=== PATIENT | female | born 1995 | race Caucasian/White ===

== ENCOUNTER 2023-11-21 17:19 | Inpatient (IN) ==
[2023-11-21] MEDS ORDERED: OXYTOCIN 30 UNITS/NSS 30 UNITS/500 ML BAG IV PRN (20:41)
[2023-11-21] MEDS ORDERED: LIDOCAINE 1% LOCAL 20 ML VIAL INFIL PRN (20:41)
--- NOTE | 2023-11-21 20:46 | History & Physical Report ---
Date of Service November 21, 2023 Assessment & Plan (1) Normal labor: (2) Need for MMR vaccine: Plan admit, iv, labs. fhts categ 1. desires epidural. mmr pp. plan arom when comfortable. History of Present Illness Chief Complaint: labor Primary Care Provider: GRACIA Perez 28yo at 40+wks ega presents to L&D with regular ctx. At first were 4-10min apart and was only 2-3 cm and now more regular and painful. No rom. PNC c/b 1. rubella equiv, mmr pp PNL rh pos, rubella equiv, gbs neg OBH: g1 GYNH: nl paps, no stds Allergies Allergy/AdvReac Type Severity Reaction Status Date / Time No Known Drug Allergies Allergy Verified 11/18/23 14:07 Home Medications Medication Instructions Recorded Confirmed Type vit no.95-ferrous 1 tab PO DAILY 03/25/23 11/21/23 History fumarate 28 mg-folic acid 800 mcg tablet () calcium carbonate 500 mg calcium 1 tab PO DIRECTED Abdominal 11/21/23 11/21/23 History (1,250 mg) chewable tablet Discomfort docusate sodium 100 mg capsule 100 mg PO DAILY 11/21/23 11/21/23 History (Colace) famotidine 10 mg/mL intravenous 10 mg PO DAILY 11/21/23 11/21/23 History solution Patient History Medical History Anterior dislocation of right shoulder Asthma Left ACL tear Oral contraceptive pill surveillance Witnessed episode of apnea Surgical History History of myringotomy S/P left knee arthroscopy S/P wisdom tooth extraction Family History Mother Bleeding disorder Grandmother (Maternal) Ovarian cancer Grandfather (Maternal) Stroke Lung disease Other Breast cancer Denies family history of Prostate cancer Myocardial infarction Colorectal cancer Social History Smoking Status: Never smoker Second Hand Exposure: No; Do You Dip or Chew Tobacco: No; Hx Alcohol Use: No Hx Substance Use: No Preferred Language: Armenian Communication Ability: Effective Visual Impairment: No Limitations Hearing Ability: Normal [employer] Required: No Beliefs That Will Affect Care: None marital status: Single marital status details: Leon (26) [phone] Current Living Situation: Significant Other Current Living Situation Comment: lives with FOB, 1 dog, 2 cats, fob to change litter. current occupational status: employed current occupation: [employer] Other Information That Helps Us Care for You: No Feels Safe at Home: Yes Safety Concerns: Feels Safe At This Time Childhood Exposure to Second-Hand Smoke: Yes (occasional ) Diet: regular Diet Comment: Regular caffeine: Yes (coffee) during the past year weight has: remained stable Dental Care, Regularly: Yes Physical Activity Frequency: 3-4 Times per Week Seatbelt Use: always Sunscreen Use: Yes Assistive Devices: None Review of Systems as per Subjective / HPI Physical Exam Constitutional: WD/WN, vitals as above Respiratory: normal respiratory effort, lungs clear to auscultation Cardiovascular: Rate/Rhythm: regular rate and regular rhythm Gastrointestinal (Abdomen): soft gravid nt efw 7-8# Musculoskeletal: tr edema nontender calves Neurologic: grossly normal Psychiatric: A+Ox3, euthymic affect Genitourinary: Manual OB Exam: + cervical dilation 5 cm, + cervical effacement 90% and + station -2 OB Exam Monitor Tracing: + external FHT monitor used, + external uterine monitor used (q2-4), + category I and + normal FHT variability Results & Data Vital Signs (Past 12 Hours) Vital Signs Temp Pulse Resp BP 11/21/23 19:04 90 11/21/23 19:04 140/76 11/21/23 18:58 97.5 F L 18 11/21/23 17:39 97.9 F 93 H 18 135/77 Coding Level of Care Code None Diagnoses Normal labor O80; Z37.9 Need for MMR vaccine Z23
[2023-11-21] MEDS: LACTATED RINGER'S 1,000 ML IV PRN (21:18)
[2023-11-21 21:56] LABS: Hematocrit (blood only) 41.7 % (37.0-47.0); Mean Corpuscular Hemoglobin 31.3 pg (25.0-34.0); Mean Corpuscular Volume 86.9 fL (80.0-100.0); Platelet Count 237 K/uL (130-400); RDW Standard Deviation 40.7 fL (36.4-46.3); White Blood Count 15.71 K/ul (4.8-10.8)
--- NOTE | 2023-11-21 22:04 | Anesthesiology Consultation ---
Date of Service November 21, 2023 Assessment & Plan Chart Review Chart Review: Patient NOT seen in Pre Admission Testing and Acceptable Risk for Labor Epidural Consults Requested none ASA ASA2 Proposed Anesthesia Anesthesia Type: Labor Epidural Risk / Benefits Reviewed With: PT / POA / Parent / Guardian, Accepts Plan and Informed Consent Obtained History Height/Weight Height: 5 ft 5 in Weight: 78.471 kg Allergies Allergy/AdvReac Type Severity Reaction Status Date / Time No Known Drug Allergies Allergy Verified 11/18/23 14:07 Medications Home Medications Medication Instructions Recorded Confirmed Last Taken vit no.95-ferrous 1 tab PO DAILY 03/25/23 11/21/23 11/21/23 09:00 fumarate 28 mg-folic acid 800 mcg tablet () calcium carbonate 500 mg calcium 1 tab PO DIRECTED Abdominal 11/21/23 11/21/23 11/21/23 12:00 (1,250 mg) chewable tablet Discomfort docusate sodium 100 mg capsule 100 mg PO DAILY 11/21/23 11/21/23 11/20/23 (Colace) famotidine 10 mg/mL intravenous 10 mg PO DAILY 11/21/23 11/21/23 11/21/23 09:00 solution Active Medications Generic Name Dose Route Start Last Admin Trade Name Freq PRN Reason Stop Dose Admin Lactated Ringer's 1,000 mls @ 125 mls/hr 11/21/23 20:41 11/21/23 21:18 Lr IV 11/23/23 20:40 999 mls/hr .Q8H PRN Administration L&D Protocol Protocol NPO Date Last Intake of Fluids: 11/21/23 Time Last Intake of Fluids: 22:00 Date Last Intake of Solids: 11/21/23 Time Last Intake of Solids: 14:30 Past Medical History Medical History Anterior dislocation of right shoulder Asthma Left ACL tear Oral contraceptive pill surveillance Witnessed episode of apnea Exercise / Class Metabolic Activity II 4-5 Yardwork/Stairs/Walk up hill Past Family History Family History Mother Bleeding disorder Grandmother (Maternal) Ovarian cancer Grandfather (Maternal) Stroke Lung disease Other Breast cancer Denies family history of Prostate cancer Myocardial infarction Colorectal cancer Past Surgical History Surgical History History of myringotomy S/P left knee arthroscopy S/P wisdom tooth extraction Past Anesthesia History No Hx of Anesthesia Complications and No Family Hx of Anesthesia Complications History of PONV No Hx of PONV and No Hx of Motion Sickness Social History Smoking Status: Never smoker Do You Dip or Chew Tobacco: No Hx Alcohol Use: No Alcohol type: beer Hx Substance Use: No Review of Systems ROS Unobtainable: All systems reviewed & are unremarkable except as noted in HPI & below Physical Exam Vital Signs Last Vital Signs Temp 36.4 C L 11/21/23 18:58 Pulse 91 H 11/21/23 21:58 Resp 18 11/21/23 18:58 BP 140/76 11/21/23 19:04 Pulse Ox 99 11/21/23 21:58 ENMT Mouth: no TMJ abnormality Thyromental Distance: > or= 3.5 Finger Breadths Mallampati Class: II Neck normal visual inspection and trachea midline; neck extension not limited Respiratory normal respiratory effort Auscultation: lungs clear to auscultation bilaterally Cardiovascular Rate/Rhythm: regular rate and regular rhythm Heart Sounds: no murmur Musculoskeletal Spine: normal cervical ROM Extremities: full ROM of extremities Neurologic moves all extremities Psychiatric Orientation: alert and oriented x 3 Testing Laboratory Results 11/21/23 21:18
[2023-11-21] MEDS: fentaNYL citrate PF 100 MCG/2 ML VIAL ONE (22:21)
[2023-11-21] MEDS: BUPIVACAINE 0.25% PF 30 ML VIAL ONE (22:21)
[2023-11-21] MEDS: fentANYL 2 MCG/ML BUPIVacaine 0.125%-NSS 100ML BAG ONE (22:22)
[2023-11-21] MEDS: LIDOCAINE 2%/EPINEPHRINE 1:200,000 20 ML PF ONE (22:22)
[2023-11-21] MEDS ORDERED: fentANYL 2 MCG/ML BUPIVacaine 0.125%-NSS 100ML BAG EPI PRN (22:25)
[2023-11-21] MEDS ORDERED: NALOXONE HCL 1 MG in SODIUM CHLORIDE 0.9% 1,000 ML IV PRN (22:25)
[2023-11-21] MEDS ORDERED: diphenhydrAMINE 50 MG/ML VIAL IV PRN (22:25)
[2023-11-21] MEDS ORDERED: ROPIVACAINE 0.5% PF 5 MG/ML 20 ML VIAL EPI PRN (22:25)
[2023-11-21] MEDS ORDERED: LIDOCAINE 2% MPF LOCAL 5 ML VIAL EPI PRN (22:25)
[2023-11-21] MEDS ORDERED: NALOXONE HCL 0.4 MG/1 ML VIAL/CARP IV PRN (22:25)
[2023-11-21] MEDS ORDERED: NALBUPHINE HCL 5 MG in SYRINGE 0 ML IV PRN (22:25)
[2023-11-21] MEDS ORDERED: fentaNYL citrate PF 100 MCG/2 ML VIAL EPI PRN (22:25)
[2023-11-21] MEDS ORDERED: SODIUM CHLORIDE 0.9% PF INJ 10 ML VIAL EPI PRN (22:25)
[2023-11-21] MEDS ORDERED: BUPIVACAINE 0.25% PF 30 ML VIAL EPI PRN (22:25)
[2023-11-21] MEDS ORDERED: ePHEDrine sulfate 50 MG/ML AMP IV PRN (22:25)
--- NOTE | 2023-11-21 23:06 | Labor Progress Brief Note ---
Date of Service November 21, 2023 Subjective comfortable after epidural Assessment & Plan (1) Normal labor: (2) Need for MMR vaccine: Plan good cx change. sometimes ctx are spaced apart, will add pitocin, fhts categ 1. Admission and Anticipated Discharge Date Admission Date: November 21, 2023 Physical Exam Constitutional: WD/WN, vitals as above Genitourinary: Manual OB Exam: + cervical dilation 8 cm, + cervical effacement 100% and + station 0 OB Exam Monitor Tracing: + external FHT monitor used, + external uterine monitor used, + category I, + normal FHT variability and + early decelerations present Results & Data Vital Signs (Past 12 Hours) Vital Signs Temp Pulse Resp BP Pulse Ox 11/21/23 23:03 97 H 11/21/23 23:03 94/52 L 11/21/23 22:58 98 11/21/23 22:58 99 H 11/21/23 22:53 96 11/21/23 22:53 95 H 11/21/23 22:48 98 11/21/23 22:48 87 11/21/23 22:48 98/54 L 11/21/23 22:45 16 11/21/23 22:45 16 11/21/23 22:45 93 H 11/21/23 22:45 77/45 L 11/21/23 22:43 97 11/21/23 22:43 95 H 11/21/23 22:40 92 H 11/21/23 22:40 98/56 L 11/21/23 22:38 99 11/21/23 22:38 95 H 11/21/23 22:35 96 H 11/21/23 22:35 101/55 L 11/21/23 22:33 98 11/21/23 22:33 101 H 11/21/23 22:30 18 11/21/23 22:30 18 11/21/23 22:28 97 11/21/23 22:28 107 H 11/21/23 22:27 94 H 11/21/23 22:27 110/56 L 11/21/23 22:25 20 11/21/23 22:25 20 11/21/23 22:25 91 H 11/21/23 22:25 114/64 11/21/23 22:23 99 11/21/23 22:23 104 H 11/21/23 22:23 110 H 11/21/23 22:23 119/66 11/21/23 22:21 103 H 11/21/23 22:21 112/58 L 11/21/23 22:20 18 11/21/23 22:20 18 11/21/23 22:19 88 11/21/23 22:19 123/61 11/21/23 22:18 100 11/21/23 22:18 109 H 11/21/23 22:13 99 11/21/23 22:13 95 H 11/21/23 22:08 82 L 11/21/23 22:08 108 H 11/21/23 22:03 98 11/21/23 22:03 87 11/21/23 21:58 99 11/21/23 21:58 91 H 11/21/23 19:04 90 11/21/23 19:04 140/76 11/21/23 18:58 97.5 F L 18 11/21/23 17:39 97.9 F 93 H 18 135/77 Coding Level of Care Code None Diagnoses Normal labor O80; Z37.9 Need for MMR vaccine Z23
[2023-11-21] MEDS: SODIUM CHLORIDE 0.9% PF INJ 10 ML VIAL ONE (23:17)
[2023-11-21] MEDS: BUPIVACAINE 0.25% PF 30 ML VIAL EPI STA (23:17)
[2023-11-21] MEDS: fentaNYL citrate PF 100 MCG/2 ML VIAL EPI STA (23:18)
[2023-11-21] MEDS: LIDOCAINE 2%/EPINEPHRINE 1:200,000 20 ML PF EPI STA (23:18)
[2023-11-21] MEDS: SODIUM CHLORIDE 0.9% PF INJ 10 ML VIAL EPI STA (23:19)
[2023-11-21] MEDS: OXYTOCIN 30 UNITS/NSS 30 UNITS/500 ML BAG IV PRN (23:28)
--- NOTE | 2023-11-22 02:39 | Delivery Summary ---
Vaginal Delivery Summary Date of Service November 22, 2023 Vaginal Delivery Summary and 2nd Degree LAC The patient dilated to complete and pushed to deliver a viable female Apgars 8 and 9 via over 2nd degree perineal laceration. Mouth and nose bulb suctioned at perineum. Shoulders and body delivered with ease. was vigorous and crying at . Cord clamped at 50 seconds of life and to maternal abdomen where the cord was then doubly clamped and cut. Placenta delivered spontaneously and intact, three-vessel cord. Hemostasis achieved with dilute pitocin and uterine massage and drainage of the bladder for approximately 50 cc under sterile conditions. Cervix and sulci intact. Laceration repaired in routine fashion 3-0 vicryl. EBL 300 cc. Mother and baby stable in recovery. [facility] [place] Vaginal Delivery Charge Delivery Type Details: and 2nd Degree LAC
[2023-11-22] MEDS ORDERED: FAMOTIDINE 10 MG TABLET PO PRN (02:43)
[2023-11-22] MEDS ORDERED: OXYTOCIN 20 UNITS/LR 1,002 ML IV SCH (02:45)
[2023-11-22] MEDS ORDERED: BENZOCAINE 20% SPRY 85 APPLN/85 GM CAN EXT PRN (02:52)
[2023-11-22] MEDS ORDERED: oxyCODONE/ACETAMINOPHEN 5mg/325mg TAB PO PRN (02:52)
[2023-11-22] MEDS ORDERED: bisacodyL 10 MG SUPP PR PRN (02:52)
[2023-11-22] MEDS ORDERED: OXYTOCIN 30 UNITS/NSS 30 UNITS/500 ML BAG IV PRN (02:52)
[2023-11-22] MEDS ORDERED: HYDROCORTISONE ACETATE 25 MG SUPP PR PRN (02:52)
[2023-11-22] MEDS: ePHEDrine sulfate 50 MG/ML AMP ONE (03:28)
[2023-11-22] MEDS: DIPHTHER/TETAN/PERTUS Vaccine (Tdap, Adol/Adult) 0.5mL IM ONE (03:28)
[2023-11-22] MEDS: OXYTOCIN 20 UNITS/LR 1,002 ML IV SCH (04:06)
[2023-11-22] MEDS: PRENATAL VITAMIN 1 TAB PO SCH (09:03)
[2023-11-22] MEDS: IBUPROFEN 600 MG TAB PO PRN (09:03)
[2023-11-22] MEDS: DOCUSATE SODIUM 100 MG CAP PO SCH (09:03)
--- NOTE | 2023-11-22 09:49 | Anesthesia Procedure Note ---
Date of Service November 22, 2023 Anesthesia Post Epidural Note Vital Signs Vital Signs: Temp Pulse Resp BP Pulse Ox O2 Del Method 98.1 F 97 H 18 121/71 98 Room Air 11/22/23 07:35 11/22/23 07:35 11/22/23 07:35 11/22/23 07:35 11/22/23 07:35 11/22/23 07:35 Pain Intensity Bilateral Lower Abdomen: Pain Intensity: 7 Notes Mental Status: alert / awake / arousable and participated in evaluation Nausea / Vomiting: adequately controlled Pain: adequately controlled Airway Patency, RR, SpO2: stable & adequate BP & HR: stable & adequate Hydration State: stable & adequate Neuraxial Anesthesia: was administered and sensory block is resolving Anesthetic Complications: no major complications apparent and Pt Satisfied with anesthetic care Epidural: Removed without complications and With tip intact
[2023-11-22] MEDS: ACETAMINOPHEN 325 MG TAB PO PRN (17:59)
--- NOTE | 2023-11-23 07:25 | Obstetrical Progress Note ---
Date of Service November 23, 2023 Assessment & Plan (1) Encounter for care and examination after delivery: satisfactory progress would like to go home today discharge with follow up in 6 weeks Subjective Ambulation: ambulating normally Voiding: no voiding problems Passing Gas:: Yes Diet Tolerance:: regular diet Lochia:: Small Feeding Type:: breast feeding Review of Systems All systems reviewed & are unremarkable except as noted in HPI & below Physical Exam Constitutional WD/WN, vitals as above Psychiatric A+Ox3, euthymic affect Genitourinary OB Exam Abdomen: + fundal height Fundus: + firm and + relation to umbilicus (1 below ) Results & Data Vital Signs (Past 12 Hours) Vital Signs Temp Pulse Resp BP Pulse Ox O2 Del Method 11/22/23 23:30 98.1 F 84 16 124/78 98 Room Air 11/22/23 19:25 98.4 F 103 H 16 137/72 98 Room Air
[2023-11-23] MEDS: MEASLES, MUMPS & RUBELLA VIRUS VACCINE (MMR) VIAL ONE (15:34)
== END 2023-11-23 18:35 | disposition home or self-care (01) | DRG 807 ==
LOC: OPB 17:19 → 4S1 17:20 → 4E2 11-22 06:17